=== PATIENT | female | born 1980 | race Caucasian/White ===

== ENCOUNTER → 2016-08-15 | Outpatient (CLI) | payer BC | END | disposition home or self-care (01) | LOC: GMAM 11:32 | PROVIDERS: ATTEND Family Medicine | DX: E04.9 Nontoxic goiter, unspecified (principal) ==

== ENCOUNTER → 2016-11-22 | Outpatient (CLI) | payer BC | END | disposition home or self-care (01) | LOC: GMAM 10:12 | PROVIDERS: ATTEND Family Medicine | DX: E04.9 Nontoxic goiter, unspecified (principal) ==

== ENCOUNTER → 2016-12-19 | Outpatient (CLI) | payer BC ==
--- NOTE | 2016-12-19 10:22 | RAD ---
History: Tuberculosis exposure. Chest x-ray: PA and lateral views are obtained. Contour of the heart and mediastinum is normal. No pulmonary infiltrate or effusion. Surgical changes upper abdomen. IMPRESSION: No active process in the chest. Electronically signed by: Jillian Tena MD 12/19/2016 10:21 AM CDT Workstation: [id number]
== END | disposition home or self-care (01) ==
LOC: RAD 09:51
PROVIDERS: ATTEND Internal Medicine Nephrology
DX: Z11.1 Encounter for screening for respiratory tuberculosis (principal)

== ENCOUNTER → 2017-01-07 | Outpatient (CLI) | payer BC ==
--- NOTE | 2017-01-08 09:08 | US ---
EXAM DESCRIPTION: Soft Tissue,Head/Neck CLINICAL HISTORY: JAW PAIN. Left side. COMPARISON: None Available. TECHNIQUE: Transcutaneous scanning: Two-dimensional and Doppler modes. FINDINGS: Mass with hypoechoic rim consistent with a lymph node measuring 1.9 cm long axis and 1.2 x 0.8 cm short axis. Central echogenicity and vascular stalk. This is adjacent to a heterogeneous soft tissue mass which is most likely the submandibular gland. Normal vascularity of the gland. No fluid collection. No other discrete solid mass. IMPRESSION: Enlarged nonreactive lymph node in the left side of the neck abutting the left submandibular gland. Consider CT scan with IV contrast or MRI scan if mass enlarges or pain increases. Electronically signed by: Lio Bates MD 01/08/2017 9:07 AM CDT
== END | disposition home or self-care (01) ==
LOC: US 10:49
PROVIDERS: ATTEND Nurse Practitioner Acute Care
DX: R68.84 Jaw pain (principal); R59.0 Localized enlarged lymph nodes

== ENCOUNTER → 2017-03-12 | Outpatient (CLI) | payer BC | END | disposition home or self-care (01) | LOC: GMAM 17:54 | PROVIDERS: ATTEND Family Medicine | DX: E04.9 Nontoxic goiter, unspecified (principal) ==

== ENCOUNTER → 2017-06-06 | Outpatient (CLI) | payer OTHER | LOC: LAB.O 10:34 | PROVIDERS: ATTEND Family Medicine | DX: Z77.21 Contact with and (suspected) exposure to potentially hazardous body fluids (principal) ==

== ENCOUNTER → 2017-09-10 | Outpatient (CLI) | payer OTHER | LOC: GMAM 10:55 | PROVIDERS: ATTEND Family Medicine | DX: E53.8 Deficiency of other specified B group vitamins (principal) ==

== ENCOUNTER → 2018-03-30 | Outpatient (CLI) | payer OTHER | LOC: GMAM 10:44 | PROVIDERS: ATTEND Family Medicine | DX: E53.8 Deficiency of other specified B group vitamins (principal); E04.9 Nontoxic goiter, unspecified ==

== ENCOUNTER → 2018-05-11 | Outpatient (CLI) | payer OTHER | LOC: GMAM 11:58 | PROVIDERS: ATTEND Nurse Practitioner Acute Care | DX: N95.8 Other specified menopausal and perimenopausal disorders (principal) ==

== ENCOUNTER → 2018-05-13 | Outpatient (CLI) | payer OTHER ==
--- NOTE | 2018-05-13 16:41 | US ---
US THYROID CLINICAL STATEMENT: E04.9. Nontoxic goiter unspecified. COMPARISON: CT scan of the neck soft tissues 01/07/2017. Palpable nodule. No prior thyroid surgery or therapy. FINDINGS: Size right thyroid lobe: 5.7 x 3.3 x 2.5 cm Size left thyroid lobe: 5.3 x 2.4 x 1.9 cm Size isthmus: 0.3 cm Estimated total number of nodules greater than or equal to 1 cm: 3. Nodule 1: Size: 3.0 x 2.6 x 1 4 cm Location: Right Upper Composition: solid or almost completely solid: 2 points Echogenicity: hypoechoic: 2 points Shape: wider than tall: 0 points Margins: ill-defined: 0 points Echogenic foci: none: 0 points ACR Total Points: 4; ACR TI-RADS risk category: TR4 - moderately suspicious nodule. Nodule 2: Size: 2.3 x 1.6 x 1.7 cm Location: Right Lower Composition: solid or almost completely solid: 2 points Echogenicity: hypoechoic: 2 points Shape: taller than wide: 3 points Margins: smooth: 0 points Echogenic foci: none: 0 points ACR Total Points: 6; ACR TI-RADS risk category: TR4 - moderately suspicious nodule. Nodule 3: Size: 1.0 x 0.6 x 0.3 cm Location: Left Upper Composition: solid or almost completely solid: 2 points Echogenicity: hypoechoic: 2 points Shape: wider than tall: 0 points Margins: ill-defined: 0 points Echogenic foci: none: 0 points ACR Total Points: 4; ACR TI-RADS risk category: TR4 - moderately suspicious nodule. Nodule 4: Size: 0.8 x 0.5 x 0.4 cm Location: Left Lower Composition: cystic or completely cystic: 0 points Echogenicity: anechoic: 0 points Shape: wider than tall: 0 points Margins: smooth: 0 points Echogenic foci: none: 0 points ACR Total Points: 0; ACR TI-RADS risk category: TR1 - benign nodule The soft tissues around the thyroid gland show no evidence of distinct cyst or dominant solid mass. No parenchymal edema or large calcifications. No overlying skin changes. Normal vascularity. IMPRESSION: 1. Nodule 1: ACR TI-RADS 2017 Category TR4. Recommend: Ultrasound-guided fine needle aspiration. Recommendations based upon [facility] Best Practice recommendations and ACR TI-RADS 2017 guidelines. Please see below*. 2. Nodule 2: ACR TI-RADS 2017 Category TR4. Recommend: Ultrasound-guided fine needle aspiration 3. Nodule 3: ACR TI-RADS 2017 Category TR4. Recommend: Follow-up ultrasound in 1 year. 4. Nodule 4: ACR TI-RADS 2017 Category TR1. Recommend: No further follow-up. The soft tissue around the thyroid gland is unremarkable. *ACR TI-RADS 2017 Recommendations: TR1: No FNA or follow up TR2: No FNA or follow up TR3: FNA if >/= 2.5 cm, follow up if 1.5 - 2.4 cm in 1, 3, and 5 years TR4: FNA if >/= 1.5 cm, follow up if 1.0 - 1.4 cm in 1, 2, 3, and 5 years TR5: FNA if >/= 1.0 cm, follow up if 0.5 - 0.9 cm every year for 5 years ACR TI-RADS recommends that no more than two nodules with the highest ACR TI-RADS total point should be biopsied and no more than four nodules should be followed. These recommendations do not apply to patients with increased risk for thyroid cancer or patients with symptomatic thyroid disease. Electronically signed by: Lio Bates MD 05/13/2018 4:38 PM [facility]
--- NOTE | 2018-05-13 16:58 | US ---
EXAM DESCRIPTION: Pelvis Transvaginal: Ultrasound. CLINICAL HISTORY: 37 years Female OTHER SPECIFIED MENOPAUSAL AND PERIMENOPAUSAL DISORDERS COMPARISON: Ultrasound thyroid gland on the same visit. TECHNIQUE: Transcutaneous scanning through the urine filled bladder. Endovaginal scanning. Mc-scale and Doppler modes. FINDINGS: Uterus 9.2 x 5.8 x 4.4 cm. Estimated volume. Endometrial thickness 1.2 mm. The myometrium appears heterogeneous. The uterus is not retroverted. Cervix less than 1 cm nabothian cyst. Cul-de-sac contains no fluid. Right ovary 3.3 x 2.8 x 2.7 cm. 12.9 mL. Normal waveform and color Doppler vascularity. Small follicles but no cysts. No adnexal mass or free fluid. Left ovary 5.5 x 4.8 x 4.4 cm. 59.5 mL. Normal waveform and color Doppler vascularity. 4.8 x 4.7 x 3.6 cm Complex cyst. Hypoechoic with septations but no significant vascularity. No mural nodules. No adnexal mass or free fluid. IMPRESSION: 1. 4.8 cm complex indeterminate cyst in the left ovary. Largest component could represent an endometrioma. [facility] Best [facility] recommendations depends on patient's menopausal state. Please see below.* * Recommendations for f/u of ovarian complex cysts (1): Endometrioma: <= 7 cm: US f/u 6-12 wks. If not surgically resected, US f/u annually. >7 cm: Consider MR w/IVC or surgical evaluation. If not surgically resected, US f/u annually. Indeterminate cyst - other, not classic for but suggestive of hemorrhagic cyst, endometrioma or dermoid: Pre-menopause: <= 7 cm: US f/u 6-12 weeks. If unchanged, continue f/u with US or consider MR w/IVC. If these do not confirm endometrioma or dermoid, consider surgical evaluation. >7 cm: Consider MR w/IVC or surgical evaluation. Post-menopause (>=1 year from last menstrual period): Any size: Consider surgical evaluation. (1) Recommendations based upon the 2010 SRU Consensus Conference Statement on the Management of Asymptomatic Ovarian and Other Adnexal Cysts Imaged at US: Radiology. 2009;256(3):943-54 2. Right ovary unremarkable. Normal position of uterus. No endometrial thickening. Nabothian cyst in the cervix. No fluid in the cul-de-sac. Electronically signed by: Lio Bates MD 05/13/2018 4:55 PM [employer]
== END ==
LOC: US 09:42
PROVIDERS: ATTEND Nurse Practitioner Acute Care
DX: E04.9 Nontoxic goiter, unspecified (principal); N95.8 Other specified menopausal and perimenopausal disorders; N83.202 Unspecified ovarian cyst, left side

== ENCOUNTER → 2018-11-24 | Outpatient (CLI) | payer OTHER | LOC: GMAM 10:36 | PROVIDERS: ATTEND Family Medicine | DX: D51.3 Other dietary vitamin B12 deficiency anemia (principal); E78.2 Mixed hyperlipidemia; E11.9 Type 2 diabetes mellitus without complications; E04.2 Nontoxic multinodular goiter ==

== ENCOUNTER → 2019-07-07 | Outpatient (CLI) | payer OTHER | LOC: GMAM 11:16 | PROVIDERS: ATTEND Family Medicine | DX: E53.8 Deficiency of other specified B group vitamins (principal); E78.2 Mixed hyperlipidemia; E11.9 Type 2 diabetes mellitus without complications ==

== ENCOUNTER → 2019-08-02 | Outpatient (CLI) | payer OTHER | LOC: GMAM 15:25 | PROVIDERS: ATTEND Family Medicine | DX: D34 Benign neoplasm of thyroid gland (principal) ==

== ENCOUNTER → 2020-01-11 | Outpatient (CLI) | payer OTHER | LOC: GMAM 14:44 | PROVIDERS: ATTEND Family Medicine | DX: E53.8 Deficiency of other specified B group vitamins (principal); E78.2 Mixed hyperlipidemia; E11.9 Type 2 diabetes mellitus without complications; E04.2 Nontoxic multinodular goiter ==